=== PATIENT | female | born 1980 ===

== ENCOUNTER 2017-05-20 13:58 | Emergency (ER) | payer MEDICAID ==
--- NOTE | 2017-05-20 14:09 | ED PDOC ---
Arrival/HPI - General Time Seen by Provider: 05/20/17 14:09 Historian: Patient - History of Present Illness Narrative History of Present Illness (Text): 05/20/17 14:58 36 yo female , #1, was sent to ED by PMD for further evaluation of lower abdominal cramping developed for apst few days. As per pt, LNMP 2016. Also c/o breast tenderness, " my anxiety kicked in", abdominal cramping, ( +) " pain during sexual activity". Pt admits, was seen by OB few early today, diagnosed with appr. 12 wks, had STD check, Pap smear and was told (+ ) white vaginal discharges. Otherwise, pt denies fever, chills, headache, dizziness, CP, SOB, dyspnea, palpitation, V/D, UTI sx, denies vaginal bleeding. At present time, pt appears in emotional distress, crying. Past Medical History - Provider Review Nursing Documentation Reviewed: Yes - Travel History Have you recently traveled outside [place] w/in the past 3 mons?: No - Infectious Disease Hx of Infectious Diseases: None - Tetanus Immunization Tetanus Immunization: Unknown Family/Social History - Physician Review Nursing Documentation Reviewed: Yes Family/Social History: No Known Family HX Allergies/Home Meds Allergies/Adverse Reactions: Allergies No Known Allergies Allergy (Verified 05/20/17 14:35) Home Medications: Home Meds Medication Instructions Recorded Confirmed Unobtainable 05/20/17 05/20/17 Review of Systems - Review of Systems Constitutional: Normal Eyes: Normal ENT: Normal Respiratory: Normal Cardiovascular: Normal Gastrointestinal: Abdominal Pain Genitourinary Female: Normal. absent: Dysuria, Frequency, Hematuria Musculoskeletal: Normal Skin: Normal Neurological: Normal Endocrine: Normal Hemo/Lymphatic: Normal Psychiatric: Normal Physical Exam Vital Signs Reviewed: Yes Vital Signs Temp Pulse Resp BP Pulse Ox 05/20/17 16:30 99 F 80 17 107/74 100 05/20/17 14:30 99.1 F 88 17 120/72 100 Temperature: Afebrile Blood Pressure: Normal Pulse: Regular Respiratory Rate: Normal Appearance: Positive for: Well-Appearing, Non-Toxic Mental Status: Positive for: Alert and Oriented X 3 - Systems Exam Head: Present: Normocephalic Conjunctiva: Present: Normal Mouth: Present: Moist Mucous Membranes, Normal Lips. No: Drooling Nose (Internal): Present: Normal Inspection Neck: Present: Normal Range of Motion Respiratory/Chest: Present: Clear to Auscultation, Good Air Exchange. No: Respiratory Distress, Accessory Muscle Use Cardiovascular: Present: Regular Rate and Rhythm, Normal S1, S2. No: Murmurs Abdomen: Present: Normal Bowel Sounds. No: Tenderness, Distention, Peritoneal Signs, Rebound, Guarding Genitourinary/Pelvic Exam: Present: Other (refused " just had been exam by OB") Back: No: CVA Tenderness Upper Extremity: Present: Normal ROM. No: Deformity Lower Extremity: Present: Normal ROM. No: Edema, CALF TENDERNESS, Swelling, Deformity Neurological: Present: GCS=15, Speech Normal Skin: Present: Warm, Dry, Normal Color. No: Rashes Psychiatric: Present: Alert, Oriented x 3 Medical Decision Making ED Course and Treatment: 05/20/17 On re-evaluation, pt appears more comfortable now, smiling. Afebrile, hemodynamicaly stable. Non-toxic. Ambulatory in Ed with stable gait. PuslEOx 100% RA ENT: no acute findings. neck: Supple. Lungs: CTA B/L, BS equal B/L. CVS: (+)S1S2, reg, Abd: benign, (-) guarding, (-) rebound, (-) localized tenderness. back: (-) CVA tenderness. Blood work, UA review and appears without acute abnormalities. US results review (+) single IU , 81ozx8h, no acute findings. Beta quant review and c/w US findings. Blood type O positive. Pt has clinical findings c/w lower abdominal cramping r/o threatened miscarriage. Pt advised to FU with OB in 2-3 days for re-evaluation. return to ED if any worsening or new changes. - Lab Interpretations Lab Results: 05/20/17 14:50 05/20/17 14:50 Lab Results 05/20/17 14:50: Blood Type O POSITIVE, Antibody Screen Negative, BBK History Checked No verified bt 05/20/17 14:50: Beta HCG, Quant [id number] H 05/20/17 14:50: Sodium 137, Potassium 3.4 L, Chloride 104, Carbon Dioxide 24, Anion Gap 13, BUN 4 L, Creatinine 0.6 L, Est GFR ( Amer) > 60, Est GFR ( Non-Af Amer) > 60, Random Glucose 86, Calcium 9.5, Total Bilirubin 0.5, AST 28, ALT 30, Alkaline Phosphatase 50, Total Protein 7.7, Albumin 4.2, Globulin 3.5, Albumin/Globulin Ratio 1.2 05/20/17 14:50: WBC 6.6, RBC 4.24, Hgb 9.4 L, Hct 29.8 L, MCV 70.3 L, MCH 22.2 L , MCHC 31.5, RDW 17.5 H, Plt Count 295, MPV 10.0, Gran % 57.7, Lymph % (Auto) 33.3, Haakon % (Auto) 6.8 H, Eos % (Auto) 2.0, Baso % (Auto) 0.2, Gran # 3.79, Lymph # 2.2, Haakon # 0.5, Eos # 0.1, Baso # 0.01 05/20/17 14:30: Urine Color Yellow, Urine Appearance Clear, Urine pH 6.5, Ur Specific [place] 1.020, Urine Protein Negative, Urine Glucose (UA) Negative, Urine Ketones Negative, Urine Blood Negative, Urine Nitrate Negative, Urine Bilirubin Negative, Urine Urobilinogen 0.2, Ur Leukocyte Esterase Negative, Urine HCG, Qual Positive - RAD Interpretation Radiology Orders: 05/20/17 14:40 OB TRANSVAGINAL [US] Stat Armhole Presser : DR. Cheng, Evangelista MARTINEZ Approver2 : Report Date : 05/20/2017 15:52:30 My Comment : PROCEDURE: First trimester ultrasound HISTORY: Lower abdominal cramping COMPARISON: None available. TECHNIQUE: Transvaginal only. Real -time technique with 2D, duplex and color Doppler FINDINGS: LMP: 03/13/2017 Prior examinations from the current : None TECHNIQUE: Real-time 2D imaging, duplex and color Doppler. FINDINGS: Cardiac activity: Present Rate: 1654 BPM Measurements: [place] rump length: 3.69 cm Gestational age based on CRL 10 weeks 4 days Gestational age based on gestational sac measurement 10 weeks Gestational age derived from LMP: 9 weeks 5 days KEITH based on LMP: 12/18/2017 KEITH based on biometry: 12/14/2017 Gestational concordance documented Yolk sac identified Uterus: Unremarkable. No Cervical abnormalities: Negative examination for cervical dilatation or effacement. Closed cervix measuring 3.55 cm Subchorionic hemorrhage: None UTERUS: 6.9 x 9.4 x 10.3 cm. ADNEXA: Right: 1.1 x 1.4 x 3 cm. Normal Doppler arterial waveform documented. Left: 2 x 2.2 x 3.4 cm. Simple cyst presumed corpus luteum cyst 1.8 x 1.9 cm Normal Doppler arterial waveform documented Fluid in the cul-de-sac: None. IMPRESSION: Ten weeks 2 days live intrauterine gestation. Gestational concordance documented. No acute findings related to/accounting for the clinical presentation. - Medication Orders Current Medication Orders: Discontinued Medications Sodium Chloride (Sodium Chloride 0.9%) 1,000 mls @ 999 mls/hr IV .Q1H1M STA Stop: 05/20/17 15:41 Last Admin: 05/20/17 14:59 Dose: 999 mls/hr eMAR Start Stop Document 05/20/17 14:59 AB (Rec: 05/20/17 15:00 AB [id number]) Intravenous Solution Start Date 05/20/17 Start Time 14:59 End Date 05/20/17 End time 15:59 Total Infusion Time 60 Disposition/Present on Arrival - Present on Arrival Any Indicators Present on Arrival: Yes - Disposition Have Diagnosis and Disposition been Completed?: No Diagnosis: Threatened miscarriage Disposition: HOME/ ROUTINE Disposition Time: 16:01 Patient Plan: Discharge Condition: GOOD Discharge Instructions (ExitCare): Threatened Miscarriage (ED) Additional Instructions: FOLLOW UP WITH OB IN 2-3 DAYS FOR RE-EVALUATION. RETURN TO ED IF ANY WORSENING OR NEW CHANGES. Referrals: Susie Garcia MD [Primary Care Provider] - Follow up with primary Forms: [employer] (Greek)
[2017-05-20 14:35] VITALS: RESP 17; O2SAT 100
[2017-05-20] MEDS ORDERED: Sodium Chloride 0.9% 1,000 ML IV STA (14:41)
[2017-05-20 14:53] LABS: PH,URINE 6.5 (4.7-8.0); URINE BILIRUBIN NEGATIVE (NEGATIVE); URINE BLOOD NEGATIVE (NEGATIVE); URINE GLUCOSE (UA) NEGATIVE (NEGATIVE); URINE KETONE NEGATIVE (NEGATIVE); URINE LEUKOCYTE ESTERASE NEGATIVE Leu/uL (NEGATIVE); URINE PROTEIN NEGATIVE mg/dL (<30 mg/dL); URINE UROBILINOGEN 0.2 E.U./dL (<1 E.U./dL)
[2017-05-20 14:55] LABS: URINE APPEARANCE CLEAR (CLEAR); URINE COLOR YELLOW (YELLOW)
[2017-05-20 15:32] LABS: ALB/GLOB RATIO 1.2 (1.1-1.8); ALKALINE PHOSPHATASE 50 U/L (38-126); ALT/SGPT 30 U/L (7-56); AST/SGOT 28 U/L (14-36); BASO # 0.01 K/mm3 (0.0-2.0); BASO % 0.2 % (0.0-3.0); BILIRUBIN,TOTAL 0.5 mg/dL (0.2-1.3); BLOOD UREA NITROGEN 4 mg/dL (7-21); CALCIUM 9.5 mg/dL (8.4-10.5); CARBON DIOXIDE 24 mmol/L (21-33); CHLORIDE 104 mmol/L (98-107); EOS # 0.1 (0.0-0.7); GFR AFRICAN-AMERICAN > 60; GLUCOSE,RANDOM 86 mg/dL (70-110); GRAN # 3.79 (1.4-6.5); GRAN % 57.7 % (50.0-68.0); HEMATOCRIT 29.8 % (36.0-48.0); LYMPH # 2.2 (1.2-3.4); LYMPH % 33.3 % (22.0-35.0); MEAN CELL VOLUME 70.3 fl (80.0-105.0); MEAN CORPUSCULAR HEMOGLOBIN 22.2 pg (25.0-35.0); MEAN CORPUSCULAR HGB CONC 31.5 g/dl (31.0-37.0); MONO # 0.5 (0.1-0.6); MONO % 6.8 % (1.0-6.0); POTASSIUM 3.4 mmol/L (3.6-5.0); RED CELL DISTRIBUTION WIDTH 17.5 % (11.5-14.5); SODIUM 137 mmol/L (132-148); TOTAL PROTEIN 7.7 g/dL (5.8-8.3); WHITE BLOOD COUNT 6.6 10^3/ul (4.5-11.0)
--- NOTE | 2017-05-20 16:01 | US ---
PROCEDURE: First trimester ultrasound HISTORY: Lower abdominal cramping COMPARISON: None available. TECHNIQUE: Transvaginal only. Real -time technique with 2D, duplex and color Doppler FINDINGS: LMP: 03/13/2017 Prior examinations from the current : None TECHNIQUE: Real-time 2D imaging, duplex and color Doppler. FINDINGS: Cardiac activity: Present Rate: 1654 BPM Measurements: [place] rump length: 3.69 cm Gestational age based on CRL 10 weeks 4 days Gestational age based on gestational sac measurement 10 weeks Gestational age derived from LMP: 9 weeks 5 days KEITH based on LMP: 12/18/2017 KEITH based on biometry: 12/14/2017 Gestational concordance documented Yolk sac identified Uterus: Unremarkable. No Cervical abnormalities: Negative examination for cervical dilatation or effacement. Closed cervix measuring 3.55 cm Subchorionic hemorrhage: None UTERUS: 6.9 x 9.4 x 10.3 cm. ADNEXA: Right: 1.1 x 1.4 x 3 cm. Normal Doppler arterial waveform documented. Left: 2 x 2.2 x 3.4 cm. Simple cyst presumed corpus luteum cyst 1.8 x 1.9 cm Normal Doppler arterial waveform documented Fluid in the cul-de-sac: None. IMPRESSION: Ten weeks 2 days live intrauterine gestation. Gestational concordance documented. No acute findings related to/accounting for the clinical presentation.
[2017-05-20 16:40] VITALS: BP 107/74; PULSE 80; TEMP 99
== END 2017-05-20 17:12 | disposition home or self-care (01) ==
LOC: ED 13:58
DX: O20.0 Threatened abortion (principal); Z3A.10 10 weeks gestation of pregnancy
CPT/HCPCS: 76817; 80053; 81003; 84702; 84703; 85025; 86850; 86900; 87086; 87491; 87591; 96360; 99283; J7040